=== PATIENT | female | born 1990 | race Native Hawaiian/Other Pacific Islander ===

== ENCOUNTER 2018-08-05 05:45 | Emergency (ER) | payer OTHER ==
[~2018-08-05] VITALS: Ht 165.1 cm; Wt 83.9 kg
[2018-08-05 07:45] VITALS: BP 128/86; TEMP 98
== END 2018-08-05 07:45 | disposition home or self-care (01) ==
LOC: ED 05:45
DX: R30.0 Dysuria (principal)
CPT/HCPCS: 81000; 87088; 99282